=== PATIENT | male | born 1995 | race Two or more races ===

== ENCOUNTER 2017-08-23 12:55 | Emergency (ER) | payer BC ==
[~2017-08-23] VITALS: Ht 154.9 cm; Wt 61.2 kg
[2017-08-23 13:04] VITALS: BP 124/75
== END 2017-08-23 13:30 | disposition home or self-care (01) ==
LOC: ER 13:00
DX: S09.90XA Unspecified injury of head, initial encounter (principal); W01.198A Fall on same level from slipping, tripping and stumbling with subsequent striking against other object, initial encounter; Y93.89 Activity, other specified; Y92.89 Other specified places as the place of occurrence of the external cause; Y99.8 Other external cause status
CPT/HCPCS: A4606; Z7502; Z7610